=== PATIENT | female | born 1990 | race American Indian/Alaskan Native ===

== ENCOUNTER 2017-01-29 22:14 | Emergency (ER) | payer SELFPAY ==
[2017-01-29] MEDS ORDERED: DUONEB 0.5 MG-3 MG/3 ML SOLN IH ONE ×2 (22:31→23:40)
[2017-01-29 23:33] LABS: Basophils % (Auto) 0.5 % (0.0-1.8); Eosinophils % (Auto) 7.7 % (0.0-4.3); Hematocrit 34.7 % (30.3-42.9); Hemoglobin 11.1 gm/dl (10.1-14.3); Mean Corpuscular HGB Conc 32 % (30-34); Mean Corpuscular Volume 80 fl (79-97); Platelet Count 292 K/mm3 (140-440); Red Blood Count 4.36 M/mm3 (3.65-5.03); Red Cell Distribution Width 17.7 % (13.2-15.2); White Blood Count 11.3 K/mm3 (4.5-11.0)
[2017-01-29 23:49] LABS: Anion Gap 18 mmol/L; BUN/Creatinine Ratio 8.57; Blood Urea Nitrogen 6 mg/dL (7-17); Calcium 8.7 mg/dL (8.4-10.2); Carbon Dioxide 26 mmol/L (22-30); Chloride 101.8 mmol/L (98-107); Glucose 128 mg/dL (65-100); Potassium 4.2 mmol/L (3.6-5.0); Sodium 142 mmol/L (137-145)
[2017-01-30 00:12] LABS: Mean Corpuscular Hemoglobin 26 pg (28-32)
[2017-01-30] MEDS ORDERED: DUONEB 0.5 MG-3 MG/3 ML SOLN IH ONE ×2 (00:30→00:37)
[2017-01-30] MEDS ORDERED: DELTASONE PO ONE (00:37)
--- NOTE | 2017-01-30 00:39 | Emergency Department Report ---
ED Asthma HPI - General Chief Complaint: Adult Asthma Stated Complaint: PAN Time Seen by Provider: 01/29/17 23:54 Source: patient Mode of arrival: Ambulatory Limitations: No Limitations - History of Present Illness Initial Comments: 26-year-old female past medical history asthma, morbid obesity presents with complaint of intermittent wheezing for 2 weeks. Patient states she ran out of her nebulized inhaler and albuterol pump. On exam patient is awake alert and oriented speaking in full sentences no clinical signs of respiratory distress no audible wheezing or stridor on exam. Patient denies any recent hospitalizations has had a few ER visits in the past for asthma. Patient does not know her baseline peak flow. Denies any associated chest pain. MD Complaint: "asthma attack", shortness of breath, wheezing Onset/Timin -: week(s) Asthma History: childhood onset, history of frequent attac, history of prior ED visit Severity: moderate Context: ran out of meds, medication non-compliance Treatments Prior to Arrival: inhaled bronchodilator - Related Data Current Asthma Therapy: inhaled bronchodilator Previous Rx's Medication Instructions Recorded Last Taken Type Acetaminophen/Codeine [Tylenol #3] 1 tab PO Q6H PRN #20 tab 12/19/15 Unknown Rx Amoxicillin [Trimox CAP] 500 mg PO Q8H #30 capsule 12/19/15 Unknown Rx Loratadine [Claritin] 10 mg PO DAILY #30 tablet 12/19/15 Unknown Rx Prednisone [predniSONE 10 mg 10 mg PO .TAPER #1 tab.ds.pk 12/19/15 Unknown Rx (6-Day Pack, 21 Tabs)] ALBUTEROL Inhaler [ProAir HFA 2 puff IH QID PRN #1 inhalation 01/30/17 Unknown Rx Inhaler] Albuterol Sulfate [Albuterol 0.63% 0.63 mg IH TID PRN #1 box 01/30/17 Unknown Rx NEBS] Prednisone [predniSONE 10 mg 10 mg PO .TAPER #1 tab.ds.pk 01/30/17 Unknown Rx (6-Day Pack, 21 Tabs)] Allergies Allergy/AdvReac Type Severity Reaction Status Date / Time No Known Allergies Allergy Verified 12/19/15 20:04 ED Review of Systems ROS: Stated complaint: PAN Other details as noted in HPI Constitutional: denies: chills, fever Eyes: denies: eye pain, eye discharge, vision change ENT: denies: ear pain, throat pain Respiratory: shortness of breath, wheezing. denies: cough Cardiovascular: denies: chest pain, palpitations Endocrine: no symptoms reported Gastrointestinal: denies: abdominal pain, nausea, diarrhea Genitourinary: denies: urgency, dysuria, discharge Musculoskeletal: denies: back pain, joint swelling, arthralgia Skin: denies: rash, lesions Neurological: denies: headache, weakness, paresthesias Psychiatric: denies: anxiety, depression Hematological/Lymphatic: denies: easy bleeding, easy bruising ED Past Medical Hx - Past Medical History Previous Medical History?: Yes Hx Asthma: Yes - Surgical History Past Surgical History?: No - Social History Smoking Status: Never Smoker Substance Use Type: None - Medications Home Medications: Home Medications Medication Instructions Recorded Confirmed Last Taken Type Acetaminophen/Codeine [Tylenol #3] 1 tab PO Q6H PRN #20 tab 12/19/15 Unknown Rx Amoxicillin [Trimox CAP] 500 mg PO Q8H #30 capsule 12/19/15 Unknown Rx Loratadine [Claritin] 10 mg PO DAILY #30 tablet 12/19/15 Unknown Rx Prednisone [predniSONE 10 mg 10 mg PO .TAPER #1 tab.ds.pk 12/19/15 Unknown Rx (6-Day Pack, 21 Tabs)] ALBUTEROL Inhaler [ProAir HFA 2 puff IH QID PRN #1 inhalation 01/30/17 Unknown Rx Inhaler] Albuterol Sulfate [Albuterol 0.63% 0.63 mg IH TID PRN #1 box 01/30/17 Unknown Rx NEBS] Prednisone [predniSONE 10 mg 10 mg PO .TAPER #1 tab.ds.pk 01/30/17 Unknown Rx (6-Day Pack, 21 Tabs)] ED Physical Exam - General Limitations: No Limitations General appearance: alert, in no apparent distress - Head Head exam: Present: atraumatic, normocephalic - Eye Eye exam: Present: normal appearance, PERRL, EOMI - ENT ENT exam: Present: mucous membranes moist - Neck Neck exam: Present: normal inspection - Respiratory Respiratory exam: Present: wheezes. Absent: respiratory distress - Cardiovascular Cardiovascular Exam: Present: regular rate, normal rhythm. Absent: systolic murmur, diastolic murmur, rubs, gallop - GI/Abdominal GI/Abdominal exam: Present: soft, normal bowel sounds - Extremities Exam Extremities exam: Present: normal inspection - Back Exam Back exam: Present: normal inspection - Neurological Exam Neurological exam: Present: alert, oriented X3 - Psychiatric Psychiatric exam: Present: normal affect, normal mood - Skin Skin exam: Present: warm, dry, intact, normal color. Absent: rash ED Course Vital Signs 01/29/17 01/29/17 01/29/17 22:38 22:49 22:54 Temperature 98.4 F Pulse Rate 120 H Pulse Rate [ 116 H 112 H Anterior Bilateral Throughout] Respiratory 20 Rate Respiratory 20 18 Rate [Anterior Bilateral Throughout] Blood Pressure 152/98 O2 Sat by Pulse 100 Oximetry 01/29/17 01/30/17 01/30/17 23:50 00:02 00:45 Temperature Pulse Rate Pulse Rate [ 117 H 115 H 112 H Anterior Bilateral Throughout] Respiratory Rate Respiratory 22 20 20 Rate [Anterior Bilateral Throughout] Blood Pressure O2 Sat by Pulse Oximetry 01/30/17 00:57 Temperature Pulse Rate Pulse Rate [ 114 H Anterior Bilateral Throughout] Respiratory Rate Respiratory 18 Rate [Anterior Bilateral Throughout] Blood Pressure O2 Sat by Pulse Oximetry ED Medical Decision Making - Lab Data Result diagrams: 01/29/17 23:05 01/29/17 23:05 - Medical Decision Making A/P: Asthma exacerbation 1-pt states she feels considerably better, has normal 02 sat on RA. denies any chest pain. albuterol, albuterol vials for home nebulizer, prednisone Dosepak 2-follow up with primary care doctor. pt states she does nto currently have a PMD 3-x-ray and blood work unremarkable Critical care attestation.: If time is entered above; I have spent that time in minutes in the direct care of this critically ill patient, excluding procedure time. ED Disposition Clinical Impression: Wheezing on auscultation Asthma Qualifiers: Asthma severity: moderate persistent Asthma complication type: with acute exacerbation Qualified Code(s): J45.41 - Moderate persistent asthma with (acute ) exacerbation Disposition: - TO HOME OR SELFCARE Is pt being admited?: No Does the pt Need Aspirin: No Condition: Stable Instructions: Asthma (ED), Reactive Airways Disease (ED) Prescriptions: ALBUTEROL Inhaler [ProAir HFA Inhaler] 2 puff IH QID PRN #1 inhalation PRN Reason: Shortness Of Breath Albuterol Sulfate [Albuterol 0.63% NEBS] 0.63 mg IH TID PRN #1 box PRN Reason: Wheezing Prednisone [predniSONE 10 mg (6-Day Pack, 21 Tabs)] 10 mg PO .TAPER #1 tab.ds.pk Referrals: [facility] [Outside] - 3-5 Days ANTHONY FISHMAN MD [Staff Physician] - 3-5 Days Time of Disposition: 01:32
--- NOTE | 2017-01-30 01:27 | XRay Report ---
FINAL REPORT PROCEDURE: XR CHEST ROUTINE 2V TECHNIQUE: PA and lateral chest radiographs were obtained. CPT 97154 HISTORY: COUGH/FEVER COMPARISON: No prior studies are available for comparison. FINDINGS: Heart: Normal. Mediastinum/Vessels: Normal. Lungs/Pleural space: Normal. Bony thorax: No acute osseous abnormality. Other: IMPRESSION: There is no evidence of an acute cardiopulmonary process.
[2017-01-30 02:03] VITALS: BP 156/90
== END 2017-01-30 02:03 | disposition home or self-care (01) ==
LOC: ED 22:14
DX: J45.41 Moderate persistent asthma with (acute) exacerbation (principal)
CPT/HCPCS: 36415; 71020; 80048; 84703; 85025; 94640; 99284; J7512

== ENCOUNTER 2018-08-31 08:46 | Emergency (ER) | payer SELFPAY ==
[2018-08-31 08:52] VITALS: BP 165/80
[2018-08-31] MEDS ORDERED: TYLENOL PO ONE (09:33)
[2018-08-31] MEDS ORDERED: LIDOCAINE VISCOUS 2% PO ONE (09:33)
[2018-08-31] MEDS ORDERED: ALUM-MAG HYDROX-SIMETH 200-200-20MG/5ML PO ONE (09:33)
--- NOTE | 2018-08-31 09:51 | Emergency Department Report ---
HPI - General Chief Complaint: Sore Throat Time Seen by Provider: 08/31/18 09:08 - HPI HPI: Patient is a 28-year-old female who presents to ED complaining of throat pain 4 days. Patient describes pain as throbbing in nature, 8 out of 10 intensity, nonradiating, localized to her throat. Admits pain with swallowing and eating. Patient admits no appetite due to throat pain. Patient denies nausea/vomiting/abdominal pain/shortness of breath/chest pain/headache. ED Past Medical Hx - Past Medical History Hx Asthma: Yes - Surgical History Past Surgical History?: No - Social History Smoking Status: Never Smoker Substance Use Type: None - Medications Home Medications: Home Medications Medication Instructions Recorded Confirmed Last Taken Type Acetaminophen/Codeine [Tylenol #3] 1 tab PO Q6H PRN #20 tab 12/19/15 Unknown Rx Loratadine [Claritin] 10 mg PO DAILY #30 tablet 12/19/15 Unknown Rx Prednisone [predniSONE 10 mg 10 mg PO .TAPER #1 tab.ds.pk 12/19/15 Unknown Rx (6-Day Pack, 21 Tabs)] ALBUTEROL Inhaler (OR & NICU) 2 puff IH QID PRN #1 inhalation 01/30/17 Unknown Rx [ProAir HFA Inhaler] Albuterol Sulfate [Albuterol 0.63% 0.63 mg IH TID PRN #1 box 01/30/17 Unknown Rx NEBS] Prednisone [predniSONE 10 mg 10 mg PO .TAPER #1 tab.ds.pk 01/30/17 Unknown Rx (6-Day Pack, 21 Tabs)] Amoxicillin [Trimox CAP] 500 mg PO Q8H #21 capsule 08/31/18 Unknown Rx Ibuprofen [Motrin] 800 mg PO Q8HR #30 tablet 08/31/18 Unknown Rx Nystas/Diphen/Xyl Visc/Mylanta 15 ml MM Q4H PRN #120 ml 08/31/18 Unknown Rx [Magic Mouthwash] ED Review of Systems ROS: Stated complaint: SORE THROAT Other details as noted in HPI Comment: All other systems reviewed and negative Physical Exam - Physical Exam Vital Signs: Vital Signs 08/31/18 08/31/18 08:50 09:41 Temperature 97.9 F Pulse Rate 82 Respiratory 18 17 Rate Blood Pressure 165/80 O2 Sat by Pulse 98 Oximetry Physical Exam: GENERAL: Alert and oriented x3, no apparent distress, Normal Gait, atraumatic. HEAD: Head is normocephalic and a-traumatic. EYES: Extra ocular muscles are intact. Pupils are equal, round, and reactive to light and accommodation. MOUTH:Mouth is well hydrated and without lesions. Tonsils erythematous, exudative and swollen, Uvula midline, Tongue not elevated. Mucous membranes are moist. Posterior pharynx has exudate or lesions. Patent airways. NECK: Supple. Non edematous, No carotid bruits. No lymphadenopathy or thyromegaly. No C-spine tenderness LUNGS: Symetrical with respiration, No wheezing, no rales or crackles, CTAB. HEART: S1, S2 present, regular rate and rhythm without murmur, no rubs, no gallops. Non tender to palpation SKIN: Warm and dry, No lesions, No ulceration or induration present. ED Course Vital Signs 08/31/18 08/31/18 08:50 09:41 Temperature 97.9 F Pulse Rate 82 Respiratory 18 17 Rate Blood Pressure 165/80 O2 Sat by Pulse 98 Oximetry ED Medical Decision Making - Medical Decision Making 28-year-old female presents with strep pharyngitis. ED course: Rapid strep tests ordered rapid strep test negative I will go ahead and treat Patient based on clinical diagnosis Patient received 1 dose of Tylenol, viscous lidocaine and Maalox mix No fever during the ED stay Vital signs stable patient is in no acute or respiratory distress. Discussed findings with patient about the positive strep. Discussed treatment in ED with patient Discussed the patient that strep throat is contagious and to limit sharing spoons and such. Patient to be sent home on Motrin and antibiotic therapy Discussed with patient follow-up with primary care physician. Patient verbally states he understands and will comply to follow-up. Critical care attestation.: If time is entered above; I have spent that time in minutes in the direct care of this critically ill patient, excluding procedure time. ED Disposition Clinical Impression: Pharyngitis, Acute bacterial tonsillitis Disposition: TO HOME OR SELFCARE Is pt being admited?: No Does the pt Need Aspirin: No Condition: Stable Instructions: Strep Throat (ED), Tonsillitis (ED) Additional Instructions: Make sure to follow up with the primary care physician as discussed. Take all your medications as you've been prescribed. If you have any worsening symptoms or develop new symptoms please return to ED immediately. Prescriptions: Amoxicillin [Trimox CAP] 500 mg PO Q8H #21 capsule Ibuprofen [Motrin] 800 mg PO Q8HR #30 tablet Nystas/Diphen/Xyl Visc/Mylanta [Magic Mouthwash] 15 ml MM Q4H PRN #120 ml PRN Reason: Sore Throat Referrals: PRIMARY CARE, [Primary Care Provider] - 3-5 Days [facility] [Outside] - 3-5 Days [facility] [Outside] - 3-5 Days Forms: Work/School Release Form(ED) Time of Disposition: 10:01
== END 2018-08-31 10:17 | disposition home or self-care (01) ==
LOC: ED 08:46
DX: J02.0 Streptococcal pharyngitis (principal); J45.909 Unspecified asthma, uncomplicated
CPT/HCPCS: 87116; 87430; 99283